=== PATIENT | female | born 1965 | race African-American/Black ===

== ENCOUNTER 2017-07-19 21:20 | Emergency (ER) | payer MEDICAID ==
[~2017-07-19] VITALS: Ht 157.5 cm; Wt 91.0 kg
[~2017-07-19 21:20] MED LIST: ASPRIN; ATENOLOL; BENA40TA3 PO; LABE100T PO; Lisinopril; METFORMIN
[2017-07-20] MEDS ORDERED: ONDANSETRON HCL 4MG/2ML VIAL IV ONE (00:45)
[2017-07-20] MEDS ORDERED: KETOROLAC 30MG/ML VIAL IV ONE (00:45)
[2017-07-20 01:06] LABS: BASOPHILS % 0.6 % (0.0-2.0); EOSINOPHILS % 3.3 % (0.0-5.0); HEMATOCRIT. 31.5 % (36.0-48.0); LYMPHOCYTES % 33.2 % (20.0-50.0); MEAN CORPUSCULAR HEMOGLOBIN 31.5 pg (28.0-32.0); MEAN CORPUSCULAR VOLUME 90.3 fL (81.0-99.0); MEAN PLATELET VOLUME 7.5 fl (7.4-10.4); MONOCYTES % 8.2 % (2.0-8.0); NEUTROPHILS % 54.7 % (40.0-76.0); PLATELET 248 x1000/uL (130-400); RED BLOOD CELL COUNT 3.49 mill/uL (4.2-5.4); RED CELL DISTRIBUTION WIDTH 15.2 % (11.6-14.6)
[2017-07-20 01:14] LABS: CHLORIDE 104 mEq/L (98-107)
[2017-07-20 01:23] LABS: CARBON DIOXIDE 26 mEq/L (21-32)
[2017-07-20 01:59] VITALS: BP 172/88
[2017-07-20] MEDS ORDERED: ONDANSETRON 4MG ODT PO ONE (02:00)
[2017-07-20] MEDS ORDERED: KETOROLAC 30MG/ML VIAL IM ONE (02:00)
== END 2017-07-20 02:39 | disposition home or self-care (01) ==
LOC: ER 22:04
DX: N92.4 Excessive bleeding in the premenopausal period (principal); I10 Essential (primary) hypertension; E11.9 Type 2 diabetes mellitus without complications; Z79.84 Long term (current) use of oral hypoglycemic drugs; Z79.82 Long term (current) use of aspirin
CPT/HCPCS: 36415; 80053; 81025; 85025; 86850; 86900; 86901; 96372; 99284; J1885; J2405; Z7610

== ENCOUNTER 2017-11-24 13:17 | Emergency (ER) | payer MEDICAID, OTHER ==
[~2017-11-24] VITALS: Ht 157.5 cm; Wt 88.0 kg
[2017-11-24] MEDS ORDERED: KETOROLAC 30MG/ML VIAL IV STA (19:40)
[2017-11-24] MEDS ORDERED: FAMOTIDINE 20MG/2ML VIAL IV STA (19:40)
[2017-11-24] MEDS ORDERED: SODIUM CHLORIDE 0.9% 1,000 ML IV ONE (19:40)
[2017-11-24] MEDS ORDERED: ONDANSETRON HCL 4MG/2ML VIAL IV STA (19:40)
[2017-11-24 20:07] LABS: BASOPHILS % 0.4 % (0.0-2.0); EOSINOPHILS % 0.9 % (0.0-5.0); HEMATOCRIT. 36.4 % (36.0-48.0); HEMOGLOBIN. 12.6 g/dL (12.0-16.0); LYMPHOCYTES % 39.4 % (20.0-50.0); MEAN CORPUSCULAR HEMOGLOBIN 28.4 pg (28.0-32.0); MEAN CORPUSCULAR VOLUME 81.9 fL (81.0-99.0); MEAN PLATELET VOLUME 7.3 fl (7.4-10.4); MONOCYTES % 11.2 % (2.0-8.0); NEUTROPHILS % 48.1 % (40.0-76.0); PLATELET 296 x1000/uL (130-400); RED BLOOD CELL COUNT 4.45 mill/uL (4.2-5.4); RED CELL DISTRIBUTION WIDTH 18.3 % (11.6-14.6)
[2017-11-24 20:13] LABS: INR 1.1; PROTHROMBIN TIME 11.4 sec (9.4-11.6)
[2017-11-24 20:22] LABS: CHLORIDE 97 mEq/L (98-107)
[2017-11-24 20:59] LABS: CLARITY URINE CLOUDY (CLEAR); COLOR URINE YELLOW (YELLOW); KETONES URINE TRACE (NEGATIVE); LEUKOCYTE ESTERASE URINE 1+ (NEGATIVE); NITRITE URINE NEGATIVE (NEGATIVE); OCCULT BLOOD URINE TRACE (NEGATIVE); PROTEIN URINE NEGATIVE (NEGATIVE); SPECIFIC GRAVITY URINE 1.013 (1.005-1.030); UROBILINOGEN URINE 0.2 E.U./dL (0.2-1.0)
[2017-11-24] MEDS ORDERED: POTASSIUM CHLORIDE 20MEQ TABLET SR PO ONE (22:00)
[2017-11-24 22:50] VITALS: BP 128/67
== END 2017-11-24 22:50 | disposition home or self-care (01) ==
LOC: ER 15:06
DX: N39.0 Urinary tract infection, site not specified (principal); E87.6 Hypokalemia; E11.9 Type 2 diabetes mellitus without complications; F32.9 Major depressive disorder, single episode, unspecified; I10 Essential (primary) hypertension; Z79.84 Long term (current) use of oral hypoglycemic drugs; Z90.49 Acquired absence of other specified parts of digestive tract
CPT/HCPCS: 36415; 80053; 81001; 83690; 85025; 85610; 96361; 96374; 96375; 99284; J1885; J2405; J3490; J7030; Z7610

== ENCOUNTER 2018-11-26 11:50 | Emergency (ER) | payer OTHER ==
[~2018-11-26] VITALS: Ht 162.6 cm; Wt 86.6 kg
[~2018-11-26 11:50] MED LIST changes: -BENA40TA3 PO; +BENA40TA9 PO; -LABE100T PO; +LABE100T5 PO
[2018-11-26] MEDS ORDERED: ACETAMINOPHEN WITH CODEINE 300/30MG TABLET PO ONE (16:00)
[2018-11-26 16:09] VITALS: BP 138/87
== END 2018-11-26 18:50 | disposition home or self-care (01) ==
LOC: ER 11:50
DX: R25.2 Cramp and spasm (principal); I10 Essential (primary) hypertension; E11.9 Type 2 diabetes mellitus without complications; J45.909 Unspecified asthma, uncomplicated; Z90.49 Acquired absence of other specified parts of digestive tract; Z79.82 Long term (current) use of aspirin; Z79.84 Long term (current) use of oral hypoglycemic drugs
CPT/HCPCS: 36415; 80048; 93970; 99284

== ENCOUNTER 2020-06-18 08:13 | Emergency (ER) | payer OTHER ==
[~2020-06-18] VITALS: Ht 172.7 cm; Wt 90.0 kg
[2020-06-18 09:02] LABS: BASOPHILS % 0.3 % (0.0-2.0); EOSINOPHILS % 0.3 % (0.0-5.0); HEMATOCRIT. 41.1 % (36.0-48.0); LYMPHOCYTES % 25.2 % (20.0-50.0); MEAN CORPUSCULAR HEMOGLOBIN 30.8 pg (28.0-32.0); MEAN CORPUSCULAR VOLUME 90.8 fL (81.0-99.0); MEAN PLATELET VOLUME 8.6 fl (7.4-10.4); MONOCYTES % 10.2 % (2.0-8.0); PLATELET 167 x1000/uL (130-400); RED BLOOD CELL COUNT 4.53 mill/uL (4.2-5.4)
[2020-06-18 09:08] LABS: CHLORIDE 89 mEq/L (98-107)
[2020-06-18] MEDS ORDERED: SODIUM CHLORIDE 0.9% 1,000 ML IV ONE ×2 (10:02→12:22)
[2020-06-18] MEDS ORDERED: INSULIN REGULAR (HUMULIN R) 300UNITS/3ML SUBCUT ONE ×3 (10:05→14:00)
[2020-06-18] MEDS ORDERED: ASPIRIN 325MG EC TABLET PO ONE (11:15)
[2020-06-18 14:33] VITALS: BP 116/53
== END 2020-06-18 15:10 | disposition short-term general hospital (02) ==
LOC: ER 08:16 → CANBEDREQ 15:24
DX: R07.89 Other chest pain (principal); E11.65 Type 2 diabetes mellitus with hyperglycemia; J45.909 Unspecified asthma, uncomplicated; I10 Essential (primary) hypertension; Z90.49 Acquired absence of other specified parts of digestive tract; F17.290 Nicotine dependence, other tobacco product, uncomplicated; F15.10 Other stimulant abuse, uncomplicated; Z79.899 Other long term (current) drug therapy
CPT/HCPCS: 36415; 71045; 80053; 81025; 82962; 83880; 84484; 85025; 93005; 96360; 96361; 96372; 99285; J1815; J7030